=== PATIENT | female | born 1990 | race Caucasian/White ===

== ENCOUNTER 2017-08-13 00:34 | Emergency (ER) | payer OTHER ==
--- NOTE | 2017-08-13 00:41 | EDPHY ---
H & P Time Seen by Provider: 08/13/17 00:37 HPI/ROS: CHIEF COMPLAINT: Cough, URI symptoms x7 days HISTORY OF PRESENT ILLNESS: 27-year-old immunocompetent female, nonsmoker, no history of chronic pulmonary disease, no history of asthma, complaining of 7 days of URI symptoms nonproductive cough, sore throat. No fever or chills. 1 episode of post-tussive emesis this evening. No abdominal pain. Bowel movements have been normal. No nuchal rigidity. No headache. PRIMARY CARE PROVIDER: None established yet REVIEW OF SYSTEMS: A ten point review of systems was performed and is negative with the exception of the items mentioned in the HPI PAST MEDICAL & SURGICAL HISTORY: No pertinent medical or surgical history SOCIAL HISTORY:Nonsmoker. Recently moved from [place] to [place]. PHYSICAL EXAM (Prior to examination, patient consented to physical exam, hands were washed and my usual and customary physical exam procedures followed) 1) GENERAL: Well-developed, well-nourished, alert and oriented. Appears nontoxic. 2) HEAD: Normocephalic, atraumatic 3) HEENT: Pupils equal, round, reactive to light bilaterally. Sclera anicteric. Nasopharynx, oropharynx, clear, no lesions. No tonsillar enlargement or exudate. No trismus no drooling Ears bilaterally with normal tympanic membranes. 4) NECK: Full range of motion, no meningeal signs. 5) LUNGS: mild end-expiratory wheeze bilaterally. No retractions or accessory muscle use.. 6) HEART: Regular rate and rhythm, no murmur, no heave, no gallop. 7) ABDOMEN: No guarding, no rebound, no focal tenderness, negative McBurney's, negative Arguelles's, negative Rovsing's, negative peritoneal sign, 8) MUSCULOSKELETAL: Moving all extremities, no focal areas of tenderness, no obvious trauma. No peripheral edema or discoloration. 9) BACK: No CVA tenderness, no midline vertebral tenderness, no fluctuance, no step-off, no obvious trauma, no visual or palpable abnormality. 10) SKIN: No rash, no petechiae. 11) Psychiatric: Patient is oriented X 3, there is no agitation. DIFFERENTIAL DIAGNOSIS: In no particular order including but not limited to bronchitis, pneumonia, reactive airways disease, PE (Parul Galarza) Constitutional: Initial Vital Signs Temperature (C) 36.6 C 08/13/17 00:44 Heart Rate 98 08/13/17 00:44 Respiratory Rate 16 08/13/17 00:44 Blood Pressure 116/82 H 08/13/17 00:44 O2 Sat (%) 99 08/13/17 00:44 O2 Delivery Mode Room Air Allergies/Adverse Reactions: No Known Allergies Allergy (Unverified 08/13/17 00:43) Home Medications: Medication Instructions Recorded Albuterol [Proventil Inhaler HFA 1 - 2 puffs IH Q4PRN PRN #1 mdi 08/13/17 (*)] Azithromycin 500 mg PO DAILY #1 tablet 08/13/17 Benzonatate [Tessalon Pearles (RX)] 200 mg PO TID PRN #15 cap 08/13/17 predniSONE [Prednisone] 20 mg PO DAILY #9 tablet 08/13/17 Medical Decision Making ED Course/Re-evaluation: 12:47 a.m.: Will administer breathing treatment, oral prednisone and re- evaluate 1:18 a.m.:. Re-evaluation with serial examinations. Feeling improvement after DuoNeb treatment. Lungs are clear bilaterally. No signs of respiratory distress. Not hypoxemic, no comorbidities. Think the patient can be treated on outpatient basis. Will hold on chest x-ray at this time in order to minimize ionizing radiation exposure. Sent home with albuterol meter dose inhaler with spacer, prescription for azithromycin, prescription for antitussive , prescription for few more days of steroids. She feels comfortable with this plan. Doubt PE. Doubt pneumothorax. Care of patient under supervision of secondary supervising physician Dr Alaina Lloyd. (Parul Galarza) PHYSICIAN DOCUMENTATION: The patient was evaluated and managed by the Physician Copy Operator. My co- signature indicates that I have reviewed this chart and I agree with the findings and plan of care as documented. I am the secondary supervising physician. (Alaina Lloyd) - Data Points Medications Given: Discontinued Medications Albuterol Sulfate (Proventil Inh Prepack) 1 mdi TAKEHOME EDNOW ONE Stop: 08/13/17 01:25 Last Admin: 08/13/17 01:31 Dose: 1 mdi Albuterol/Ipratropium (Duoneb) 3 ml IH EDNOW ONE Stop: 08/13/17 00:46 Last Admin: 08/13/17 00:50 Dose: 3 ml Azithromycin (Zithromax) 500 mg PO EDNOW ONE PRN Reason: Protocol Stop: 08/13/17 01:28 Last Admin: 08/13/17 01:31 Dose: 500 mg Prednisone (Prednisone) 60 mg PO EDNOW ONE Stop: 08/13/17 00:46 Last Admin: 08/13/17 00:50 Dose: 60 mg Departure - Departure Disposition: Home, Routine, Self-Care Clinical Impression: Upper respiratory infection Qualifiers: URI type: unspecified URI Qualified Code(s): J06.9 - Acute upper respiratory infection, unspecified Condition: Good Instructions: Albuterol (By breathing), Upper Respiratory Infection (ED) Additional Instructions: Return to the emergency department immediately for change in breathing habits, change in voice, change in swallowing habits, change in mental status, or any other symptoms that concern you. Referrals: Cuauhtemoc Myers MD [Medical Doctor] - 2-3 days, call for appt. Stand Alone Forms: School Excuse Prescriptions: Albuterol [Proventil Inhaler HFA (*)] 1 - 2 puffs IH Q4PRN PRN #1 mdi PRN Reason: Cough, Moderate Azithromycin 500 mg PO DAILY #1 tablet Benzonatate [Tessalon Pearles (RX)] 200 mg PO TID PRN #15 cap PRN Reason: Cough, Moderate predniSONE [Prednisone] 20 mg PO DAILY #9 tablet
[2017-08-13] MEDS ORDERED: IPRATROPIUM/ALBUTEROL 3 ML DEYVIAL IH ONE (00:45)
[2017-08-13] MEDS ORDERED: predniSONE 20 MG TAB PO ONE (00:45)
[2017-08-13 00:46] VITALS: RESP 16; TEMP 97.9
[2017-08-13] MEDS ORDERED: ALBUTEROL INH PREPACK MDI TAKEHOME ONE (01:24)
[2017-08-13] MEDS ORDERED: AZITHROMYCIN 250 MG TAB PO ONE ×2 (01:27→01:28)
[2017-08-13 01:41] VITALS: BP 115/79; PULSE 95; O2SAT 98
== END 2017-08-13 01:41 | disposition home or self-care (01) ==
DX: J06.9 Acute upper respiratory infection, unspecified (principal)
CPT/HCPCS: J7512